=== PATIENT | female | born 1985 | race American Indian/Alaskan Native ===

== ENCOUNTER 2017-04-29 07:16 | Day surgery (SDC) | payer BC ==
[~2017-04-29 07:16] MED LIST: MARCAINE 0.5% INFILTRATI ONE; NACL 0.9% IR ONE; XYLOCAINE 1% 20 mL INFILTRATI ONE
[2017-04-29] MEDS ORDERED: VERSED IV NR (09:00)
[2017-04-29] MEDS ORDERED: PEPCID PO NR (09:00)
[2017-04-29] MEDS ORDERED: NACL 0.9% 1000 ML 1,000 ML IV SCH (09:00)
[2017-04-29 09:33] LABS: Hematocrit 29.7 % (30.3-42.9); Hemoglobin 9.3 gm/dl (10.1-14.3)
[2017-04-29] MEDS ORDERED: PERCOCET 5/325 PO PRN (09:53)
[2017-04-29] MEDS ORDERED: ZOFRAN IV PRN (09:53)
--- NOTE | 2017-04-29 09:59 | Anesthesia Day of Surgery ---
Anesthesia Day of Surgery - Day of Surgery Patient Examined: Yes Patient is NPO: Yes
--- NOTE | 2017-04-29 09:59 | Anesthesia Consultation ---
Anesthesia Consult and Med Hx Date of service: 04/29/17 - Airway Anesthetic Teeth Evaluation: Good ROM Head & Neck: Adequate Mental/Hyoid Distance: Adequate Mallampati Class: Class II Intubation Access Assessment: Probably Good - Pulmonary Exam CTA: Yes - Cardiac Exam Cardiac Exam: RRR - Pre-Operative Health Status ASA Pre-Surgery Classification: ASA3 Proposed Anesthetic Plan: General - Pulmonary Hx Smoking: No Hx Asthma: Yes Hx Sleep Apnea: Yes (RESOLVED DUE TO WT LOSS) - Cardiovascular System Hx Hypertension: Yes (2008) - Central Nervous System Hx Psychiatric Problems: No - Other Systems Hx Alcohol Use: Yes (OCCAS [employer]) Hx Substance Use: No Hx Cancer: No Hx Obesity: Yes (morbid, bmi 44) - Additional Comments Anesthesia Medical History Comments: bit tongue after tonsillectomy and it was sore for weeks.
[2017-04-29] MEDS ORDERED: DIPRIVAN 10 MG/ML IV ONE (10:13)
[2017-04-29] MEDS ORDERED: DILAUDID ONE (10:13)
[2017-04-29] MEDS ORDERED: ANCEF/STERILE WATER 2 GM/20 ML IV NR (11:00)
[2017-04-29] MEDS ORDERED: NACL 0.9% IR ONE (11:30)
[2017-04-29] MEDS ORDERED: DECADRON ONE (11:45)
[2017-04-29] MEDS ORDERED: ROBINUL ONE (11:45)
[2017-04-29] MEDS ORDERED: ZOFRAN ONE (11:45)
[2017-04-29] MEDS ORDERED: TORADOL ONE (12:27)
[2017-04-29] MEDS: DILAUDID IV PRN ×4 (12:43→13:34)
--- NOTE | 2017-04-29 13:04 | Operative Report ---
PREOPERATIVE DIAGNOSES: 1. Cicatrix. 2. Neuroma. 3. Disturbance of skin sensation. POSTOPERATIVE DIAGNOSES: 1. Cicatrix. 2. Neuroma. 3. Disturbance skin sensation. PROCEDURE: Complex scar revision of abdomen, 30 cm. SURGEON: Barry Rainey MD TRANSMISSION AND COORDINATION ENGINEER: Gonzalo Simeon CSA. DESCRIPTION OF PROCEDURE: The patient was brought to the operating room and placed in the supine position. Following initiation of general anesthesia, the abdomen was prepped with Betadine solution and draped in the usual sterile manner. A #10 blade scalpel was used to circumferentially excise the painful scar and sent to pathology as specimen. Hemostasis controlled using electrocautery. Closure was performed in layers using interrupted and running subcuticular 2-0 Monocryl sutures. Mastisol, Steri-Strips and sterile dressings applied. The patient tolerated the procedure well and returned to recovery room in stable condition. JOB# [id number] FTW/NTS
--- NOTE | 2017-04-29 15:01 | Post Anesthesia Evaluation ---
- Post Anesthesia Evaluation Patient Participated: Yes Airway Patent: Yes Stable Respiratory Function: Yes Nausea/Vomiting: No Temp > 96.8F: Yes Pain Manageable: Yes Adequeate Hydration: Yes Anesthesia Complications: No Block Receding Appropriately: Not Applicable Patient on Ventilator: No
[2017-04-29] MEDS ORDERED: PERCOCET 5/325 PO ONE (15:27)
[2017-04-29 17:33] VITALS: BP 136/76
== END 2017-04-29 17:15 | disposition home or self-care (01) ==
LOC: OR 07:16 → EDBD 11:00 → OR 17:15
PROVIDERS: ATTEND Plastic Surgery
DX: L90.5 Scar conditions and fibrosis of skin (principal); D36.10 Benign neoplasm of peripheral nerves and autonomic nervous system, unspecified; R20.9 Unspecified disturbances of skin sensation; J45.909 Unspecified asthma, uncomplicated; I10 Essential (primary) hypertension; E66.01 Morbid (severe) obesity due to excess calories; Z72.89 Other problems related to lifestyle; Z68.41 Body mass index [BMI] 40.0-44.9, adult; Z91.040 Latex allergy status
CPT/HCPCS: 13101; 13102; 36415; 81025; 84132; 85014; 85018; 88302; J0690; J1100; J1170; J1885; J2250; J2405; J2704; J7030; 88305